=== PATIENT | male | born 1995 | race African-American/Black ===

== ENCOUNTER 2022-04-08 20:59 | Emergency (ER) | payer BC, OTHER | END 2022-04-08 23:50 | disposition home or self-care (01) | LOC: ERS 20:59 | DX: S90.01XA Contusion of right ankle, initial encounter (principal); S00.01XA Abrasion of scalp, initial encounter; S60.511A Abrasion of right hand, initial encounter; S40.811A Abrasion of right upper arm, initial encounter; F17.220 Nicotine dependence, chewing tobacco, uncomplicated; V86.59XA Driver of other special all-terrain or other off-road motor vehicle injured in nontraffic accident, initial encounter | CPT/HCPCS: 70450; 71045; 72125; 93005 ==